=== PATIENT | female | born 1955 | race Caucasian/White ===

== ENCOUNTER → 2016-06-01 | Outpatient (CLI) | payer BC | LOC: RAD 16:09 | DX: R22.1 Localized swelling, mass and lump, neck (principal) | CPT/HCPCS: 71020 ==

== ENCOUNTER → 2020-06-10 | Outpatient (CLI) | payer MEDICARE, OTHER ==
[~2020-06-10] MED LIST: IBUPROFEN600 MG PO
[2020-06-10 08:56] LABS: BUN/CREATININE RATIO 12 (0-10)
== END ==
LOC: LAB 07:55
PROVIDERS: Emergency Medicine
DX: E11.65 Type 2 diabetes mellitus with hyperglycemia (principal); E78.2 Mixed hyperlipidemia; E03.8 Other specified hypothyroidism; G25.0 Essential tremor; G44.89 Other headache syndrome
CPT/HCPCS: 36415; 80048; 83036

== ENCOUNTER 2020-12-01 07:12 | Observation (INO) | payer OTHER, MEDICARE ==
[~2020-12-01] VITALS: Ht 162.6 cm; Wt 65.8 kg
[2020-12-01 09:10] LABS: HEMOGLOBIN 12.8 gm/dl (12.3-15.3); RED BLOOD COUNT 4.14 M/UL (4.00-5.10); WHITE BLOOD COUNT 12.7 K/UL (4.5-11.0)
[2020-12-01 09:45] LABS: BUN/CREATININE RATIO 14 (0-10)
[2020-12-01] MEDS ORDERED: DOXEPIN HCL50 MG PO (12:06)
[2020-12-01] MEDS ORDERED: SIMVASTATIN80 MG PO (12:07)
[2020-12-01] MEDS ORDERED: PRIMIDONE50 MG PO (12:07)
[2020-12-01] MEDS ORDERED: LISINOPRIL2.5 MG PO (12:07)
[2020-12-01] MEDS ORDERED: LORATADINE10 MG PO (12:08)
[2020-12-01] MEDS ORDERED: LEVOTHYROXINE75 MCG PO (12:08)
[2020-12-01] MEDS ORDERED: ZINC50 M1 PO (12:09)
[2020-12-01] MEDS ORDERED: METFORMIN HCL1000 MG PO (12:09)
[2020-12-01] MEDS ORDERED: IBU600 MG PO (12:09)
[2020-12-01] MEDS ORDERED: MELATONIN10 M2 PO (12:10)
[2020-12-01] MEDS ORDERED: BIOTIN PO (12:11)
[2020-12-01] MEDS ORDERED: DAILY VALUE1 EACH PO (12:11)
[2020-12-01] MEDS ORDERED: CBD GUMMIE PO (12:12)
[2020-12-03] MEDS ORDERED: ZOFRAN ODT 4 MG4 MG GT (15:18)
[2020-12-03] MEDS ORDERED: PERCOCET 5-3251 EACH PO (15:18)
[2020-12-03] MEDS ORDERED: CYCLOBENZAPRINE10 MG PO (15:18)
== END 2020-12-03 17:26 | disposition home or self-care (01) ==
LOC: ER1 07:12 → CDU 10:20 → M/S 12-02 11:37
PROVIDERS: Family Medicine; ADMIT Surgery
DX: S22.43XA Multiple fractures of ribs, bilateral, initial encounter for closed fracture (principal); M79.644 Pain in right finger(s); E03.9 Hypothyroidism, unspecified; I10 Essential (primary) hypertension; E11.9 Type 2 diabetes mellitus without complications; Z20.822 Contact with and (suspected) exposure to COVID-19; Z87.19 Personal history of other diseases of the digestive system; Z98.890 Other specified postprocedural states; Z79.84 Long term (current) use of oral hypoglycemic drugs; Z88.5 Allergy status to narcotic agent; V89.2XXA Person injured in unspecified motor-vehicle accident, traffic, initial encounter
CPT/HCPCS: 70450; 71045; 71260; 72125; 73130; 80053; 82550; 82553; 83690; 83874; 84484; 85025; 93005; 96374; 96375; 96376; 99285; G0378; J2270; J2405; Q9965; U0002

== ENCOUNTER → 2020-12-21 | Outpatient (CLI) | payer OTHER, MEDICARE ==
[~2020-12-21] MED LIST changes: +BIOTIN PO; +CBD GUMMIE PO; +CYCLOBENZAPRINE10 MG PO; +DAILY VALUE1 EACH PO; +DOXEPIN HCL50 MG PO; +IBU600 MG PO; +LEVOTHYROXINE75 MCG PO; +LISINOPRIL2.5 MG PO; +LORATADINE10 MG PO; +MELATONIN10 M2 PO; +METFORMIN HCL1000 MG PO; +PERCOCET 5-3251 EACH PO; +PRIMIDONE50 MG PO; +SIMVASTATIN80 MG PO; +ZINC50 M1 PO; +ZOFRAN ODT 4 MG4 MG GT
== END ==
LOC: RAD 12:22
DX: S27.2XXD Traumatic hemopneumothorax, subsequent encounter (principal); S27.0XXD Traumatic pneumothorax, subsequent encounter; S22.43XD Multiple fractures of ribs, bilateral, subsequent encounter for fracture with routine healing; X58.XXXD Exposure to other specified factors, subsequent encounter
CPT/HCPCS: 71046

== ENCOUNTER 2021-03-08 11:00 | Emergency (ER) | payer MEDICARE, OTHER ==
[~2021-03-08] VITALS: Ht 162.6 cm; Wt 60.8 kg
[2021-03-08 12:06] LABS: HEMOGLOBIN 12.4 gm/dl (12.3-15.3); RED BLOOD COUNT 3.89 M/UL (4.00-5.10); WHITE BLOOD COUNT 5.7 K/UL (4.5-11.0)
[2021-03-08] MEDS ORDERED: DELSYM30 MG/5 ML PO (15:09)
[2021-03-08] MEDS ORDERED: FLONASE ALLER15.8 ML (15:09)
== END 2021-03-08 16:55 | disposition home or self-care (01) ==
LOC: ER1 11:00
PROVIDERS: Physician Assistant
DX: U07.1 COVID-19 (principal); Z23 Encounter for immunization; R10.9 Unspecified abdominal pain; E11.9 Type 2 diabetes mellitus without complications; I10 Essential (primary) hypertension
CPT/HCPCS: 0240U; 71045; 80053; 81001; 85025; 99284; M0245; Q9967

== ENCOUNTER → 2021-06-23 | Outpatient (CLI) | payer MEDICARE, OTHER ==
[~2021-06-23] MED LIST changes: +DELSYM30 MG/5 ML PO; +FLONASE ALLER15.8 ML
[2021-06-23 06:47] LABS: HEMOGLOBIN 12.6 gm/dl (12.3-15.3); RED BLOOD COUNT 3.98 M/UL (4.00-5.10); WHITE BLOOD COUNT 7.2 K/UL (4.5-11.0)
[2021-06-24 10:16] LABS: CREATININE, URINE 202.7 mg/dL (Not Estab.)
[2021-06-25 15:14] LABS: CHOLESTEROL, TOTAL 129 mg/dL (100-199); HDL SIZE 9.2 nm (>=9.2); HDL-C 50 mg/dL (>39); HDL-P (TOTAL) 38.2 umol/L (>=30.5); LARGE HDL-P 6.9 umol/L (>=4.8); LARGE VLDL-P 9.1 nmol/L (<=2.7); LDL SIZE 19.8 nm (>20.5); LDL SIZE 19.8 nm (>=20.8); LDL-C 49 mg/dL (0-99); LDL-P 629 nmol/L (<1000); LP-IR SCORE 67 (<=45); SMALL LDL-P 462 nmol/L (<=527); TRIGLYCERIDES 186 mg/dL (0-149); VLDL SIZE 56.5 nm (<=46.6)
== END ==
LOC: LAB 06:04
PROVIDERS: Emergency Medicine
DX: I10 Essential (primary) hypertension (principal); E11.9 Type 2 diabetes mellitus without complications; E78.2 Mixed hyperlipidemia; G25.0 Essential tremor
CPT/HCPCS: 36415; 80053; 80061; 82043; 82570; 83036; 83704; 84443; 84550; 85025

== ENCOUNTER → 2021-11-12 | Outpatient (CLI) | payer MEDICARE, OTHER ==
[~2021-11-12] MED LIST changes: +BENADRYL 50MG C50 MG PO; +PROPRANOLOL HCL60 M1 PO
== END ==
LOC: RAD 09:00
PROVIDERS: Emergency Medicine
DX: R07.89 Other chest pain (principal); E53.8 Deficiency of other specified B group vitamins; E03.8 Other specified hypothyroidism; R13.13 Dysphagia, pharyngeal phase; K21.9 Gastro-esophageal reflux disease without esophagitis
CPT/HCPCS: 36415; 74246; 80053; 82607; 84443